=== PATIENT | female | born 1960 | race African-American/Black ===

== ENCOUNTER 2021-05-26 11:31 | Emergency (ER) | payer OTHER | END 2021-05-26 12:03 | disposition left against medical advice (07) | LOC: CSHERS 11:31 | DX: Z53.21 Procedure and treatment not carried out due to patient leaving prior to being seen by health care provider (principal) ==

== ENCOUNTER 2021-07-09 09:38 | Emergency (ER) | payer BC, OTHER ==
[2021-07-09 10:15] LABS: #Eosinphils 0.1 10x3/uL (0.0-0.5); #Monocytes 0.3 10x3/uL (0.0-1.1); #Neutrophils 1.6 10x3/uL (1.5-8.4); %Basophils 0.9 % (0.0-2.0); %Eosinophils 2.3 % (0.0-6.0); %Lymphocytes 41.3 % (18.0-47.0); %Monocytes 7.8 % (0.0-10.0); %Neutrophils 47.1 % (40.0-75.0); Hemoglobin 14.4 g/dL (12.0-15.5); Mean Corpuscular HGB CONC 33.1 g/dL (32.0-36.0); Mean Corpuscular Hemoglobin 27.7 pg (27.0-33.0); Mean Corpuscular Volume 83.7 fl (81.6-98.3); Mean Platelet Volume 10.5 fl (7.4-10.4); Platelet Count 218 10x3/uL (150-450); RBC Distribution Width 13.4 % (11.5-14.5); White Blood Cell (WBC) Count 3.4 10x3/uL (3.5-10.5)
[2021-07-09] MEDS ORDERED: Ondansetron PF 4 MG/2 ML Vial ONE (10:27)
[2021-07-09] MEDS ORDERED: Ketorolac Tromethamine 30 MG/ML VIAL ONE (10:27)
[2021-07-09 10:29] LABS: ALT (SGPT) 15 U/L (8-55); AST (SGOT) 15 U/L (5-34); Albumin 4.1 g/dL (3.4-4.8); Alkaline Phosphatase 149 U/L (40-110); Anion Gap 16 mmol/L (10-20); BUN (Urea Nitrogen) 13 mg/dL (9.8-20.1); Bilirubin, Total 0.3 mg/dL (0.2-1.2); CK (CPK) 82 U/L (29-168); Calc. Creatinine Clearance 0 mL/min (70-130); Calcium 9.4 mg/dL (7.8-10.44); Carbon Dioxide 21 mmol/L (23-31); Chloride 106 mmol/L (98-107); Glucose 180 mg/dL (80-115); Lipase 26 U/L (8-78); Potassium 4.7 mmol/L (3.5-5.1); Protein, Total 8.1 g/dL (5.8-8.1); Sodium 138 mmol/L (136-145)
[2021-07-09] MEDS ORDERED: Lidocaine 2 gm/D5W 500 ml 500 ML IVPB SCH (11:15)
[2021-07-09 11:44] LABS: Bilirubin Neg (Negative); Blood, Urine 250 (Negative); Clarity Clear (Clear); Glucose, Urine (Dipstick) 50 mg/dL (Negative); Ketone, Urine Negative (Negative); Leukocyte Negative (Negative); Nitrite Negative (Negative); Protein, Urine (Dipstick) Negative (Neg-Trace); Urobilinogen Normal mg/dL (Less than 2)
[2021-07-09 11:51] LABS: Bacteria/HPF Rare-Few HPF (None Seen); Squamous Epithelial 0-3 HPF (0-3); WBC/HPF 0-3 HPF (0-3)
[2021-07-09] MEDS ORDERED: D5W IVPB SCH (12:45)
[2021-07-09] MEDS ORDERED: LIDOCAINE IVPB SCH (12:45)
== END 2021-07-09 13:51 | disposition home or self-care (01) ==
LOC: CSHERS 09:38
DX: N13.2 Hydronephrosis with renal and ureteral calculous obstruction (principal); E11.9 Type 2 diabetes mellitus without complications
CPT/HCPCS: 71045; 74176; 80053; 81003; 81015; 82550; 83690; 84484; 85025; 93005; 96374; 96375; J1885; J2001; J2405

== ENCOUNTER 2021-11-22 17:19 | Emergency (ER) | payer BC ==
[2021-11-22] MEDS ORDERED: Diazepam 5 MG TAB ONE (19:35)
[2021-11-22] MEDS ORDERED: Ketorolac Tromethamine 30 MG/ML VIAL ONE (19:36)
== END 2021-11-22 19:53 | disposition home or self-care (01) ==
LOC: CSHERS 17:19
DX: M54.50 Low back pain, unspecified (principal); E11.9 Type 2 diabetes mellitus without complications
CPT/HCPCS: 96372; 99283; J1885

== ENCOUNTER 2021-11-24 09:16 | Emergency (ER) | payer BC | END 2021-11-24 11:00 | disposition home or self-care (01) | LOC: CSHERS 09:16 | DX: M54.42 Lumbago with sciatica, left side (principal) | CPT/HCPCS: 99283 ==

== ENCOUNTER 2021-12-17 09:24 | Emergency (ER) | payer BC ==
[2021-12-17 11:28] LABS: SARS-CoV-2 NAA Rapid Test DETECTED (NotDetected)
[2021-12-17] MEDS ORDERED: Ibuprofen 200 MG TAB ONE ×2 (12:26→12:34)
[2021-12-17] MEDS ORDERED: Acetaminophen 500 MG TAB ONE (12:27)
== END 2021-12-17 12:30 | disposition home or self-care (01) ==
LOC: CSHERS 09:24
DX: U07.1 COVID-19 (principal); E11.9 Type 2 diabetes mellitus without complications
CPT/HCPCS: 71045; 93005

== ENCOUNTER 2022-11-07 08:33 | Emergency (ER) | payer BC ==
[2022-11-07] MEDS ORDERED: Meclizine HCl 25 MG TAB ONE (09:17)
[2022-11-07 09:54] LABS: #Eosinphils 0.1 10x3/uL (0.0-0.5); #Monocytes 0.3 10x3/uL (0.0-1.1); #Neutrophils 1.4 10x3/uL (1.5-8.4); %Basophils 0.9 % (0.0-2.0); %Eosinophils 2.6 % (0.0-6.0); %Lymphocytes 46.8 % (18.0-47.0); %Monocytes 8.1 % (0.0-10.0); %Neutrophils 41.3 % (40.0-75.0); Hemoglobin 13.3 g/dL (12.0-15.5); Mean Corpuscular Hemoglobin 27.4 pg (27.0-33.0); Mean Corpuscular Volume 83.1 fl (81.6-98.3); Mean Platelet Volume 12.1 fl (7.4-10.4); Platelet Count 199 10x3/uL (150-450); RBC Distribution Width 13.3 % (11.5-14.5); Red Blood Cell (RBC) Count 4.85 10x6/uL (3.90-5.03); White Blood Cell (WBC) Count 3.5 10x3/uL (3.5-10.5)
[2022-11-07 10:16] LABS: ALT (SGPT) 14 U/L (8-55); AST (SGOT) 16 U/L (5-34); Albumin 3.8 g/dL (3.4-4.8); Alkaline Phosphatase 132 U/L (40-110); Anion Gap 14 mmol/L (10-20); BUN (Urea Nitrogen) 14 mg/dL (9.8-20.1); Bilirubin, Total 0.3 mg/dL (0.2-1.2); Calc. Creatinine Clearance 0 mL/min (70-130); Calcium 8.7 mg/dL (7.8-10.44); Carbon Dioxide 23 mmol/L (23-31); Chloride 107 mmol/L (98-107); Estimated GFR 97; Globulin 3.5 g/dL (2.4-3.5); Glucose 154 mg/dL (80-115); Potassium 4.1 mmol/L (3.5-5.1); Protein, Total 7.3 g/dL (5.8-8.1); Sodium 140 mmol/L (136-145)
== END 2022-11-07 10:36 | disposition home or self-care (01) ==
LOC: CSHERS 08:33
DX: R42 Dizziness and giddiness (principal); E11.9 Type 2 diabetes mellitus without complications
CPT/HCPCS: 36416; 80053; 85025; 93005; 94760

== ENCOUNTER 2023-04-23 13:39 | Emergency (ER) | payer BC ==
[2023-04-23 14:22] LABS: #Eosinphils 0.2 10x3/uL (0.0-0.5); #Monocytes 0.4 10x3/uL (0.0-1.1); #Neutrophils 2.3 10x3/uL (1.5-8.4); %Basophils 0.8 % (0.0-2.0); %Eosinophils 3.2 % (0.0-6.0); %Lymphocytes 42.9 % (18.0-47.0); %Monocytes 8.1 % (0.0-10.0); %Neutrophils 44.8 % (40.0-75.0); Hematocrit 42.3 % (34.9-44.5); Hemoglobin 13.9 g/dL (12.0-15.5); Mean Corpuscular HGB CONC 32.9 g/dL (32.0-36.0); Mean Corpuscular Hemoglobin 27.5 pg (27.0-33.0); Mean Corpuscular Volume 83.6 fl (81.6-98.3); Mean Platelet Volume 10.4 fl (7.4-10.4); Platelet Count 270 10x3/uL (150-450); RBC Distribution Width 13.2 % (11.5-14.5); Red Blood Cell (RBC) Count 5.06 10x6/uL (3.90-5.03)
[2023-04-23 14:35] LABS: ALT (SGPT) 14 U/L (8-55); AST (SGOT) 13 U/L (5-34); Albumin 4.2 g/dL (3.4-4.8); Alkaline Phosphatase 132 U/L (40-110); Anion Gap 15 mmol/L (10-20); BUN (Urea Nitrogen) 14 mg/dL (9.8-20.1); Bilirubin, Total 0.2 mg/dL (0.2-1.2); Calc. Creatinine Clearance 0 mL/min (70-130); Calcium 9.8 mg/dL (7.8-10.44); Carbon Dioxide 24 mmol/L (23-31); Chloride 106 mmol/L (98-107); Estimated GFR 64; Globulin 3.5 g/dL (2.4-3.5); Glucose 126 mg/dL (80-115); Potassium 4.1 mmol/L (3.5-5.1); Protein, Total 7.7 g/dL (5.8-8.1); Sodium 141 mmol/L (136-145)
[2023-04-23 14:41] LABS: Troponin I 0.011 ng/mL (< 0.028)
== END 2023-04-23 15:46 | disposition home or self-care (01) ==
LOC: CSHERS 13:39
DX: R00.2 Palpitations (principal); K30 Functional dyspepsia; E11.9 Type 2 diabetes mellitus without complications
CPT/HCPCS: 36416; 71045; 80053; 84484; 85025; 93005

== ENCOUNTER 2023-06-12 11:38 | Emergency (ER) | payer BC ==
[2023-06-12] MEDS ORDERED: Ketorolac Tromethamine 30 MG (1 mL) VIAL ONE (12:11)
== END 2023-06-12 12:41 ==
LOC: CSHERS 11:38
DX: M54.31 Sciatica, right side (principal); E11.9 Type 2 diabetes mellitus without complications
CPT/HCPCS: 99283; J1885

== ENCOUNTER 2023-11-20 09:25 | Emergency (ER) | payer BC ==
[2023-11-20] MEDS ORDERED: Meclizine HCl 25 MG TAB ONE (10:08)
[2023-11-20 10:42] LABS: #Basophils 0.03 10x3/uL (0.0-0.2); #Eosinphils 0.13 10x3/uL (0.0-0.5); #Monocytes 0.29 10x3/uL (0.0-1.1); #Neutrophils 1.46 10x3/uL (1.5-8.4); %Basophils 0.8 % (0.0-2.0); %Eosinophils 3.6 % (0.0-6.0); %Lymphocytes 47.8 % (18.0-47.0); %Monocytes 7.9 % (0.0-10.0); %Neutrophils 39.9 % (40.0-75.0); Hematocrit 39.5 % (34.9-44.5); Hemoglobin 13.6 g/dL (12.0-15.5); Mean Corpuscular HGB CONC 34.4 g/dL (32.0-36.0); Mean Corpuscular Hemoglobin 28.6 pg (27.0-33.0); Mean Corpuscular Volume 83.2 fL (81.6-98.3); Mean Platelet Volume 10.4 fL (7.4-10.4); Platelet Count 267 10x3/uL (150-450); RBC Distribution Width 13.7 % (11.5-14.5); Red Blood Cell (RBC) Count 4.75 10x6/uL (3.90-5.03); White Blood Cell (WBC) Count 3.7 10x3/uL (3.5-10.5)
[2023-11-20 10:56] LABS: ALT (SGPT) 14 U/L (8-55); AST (SGOT) 15 U/L (5-34); Albumin 3.8 g/dL (3.4-4.8); Alkaline Phosphatase 115 U/L (40-110); Anion Gap 13 mmol/L (10-20); BUN (Urea Nitrogen) 16 mg/dL (9.8-20.1); Bilirubin, Total 0.3 mg/dL (0.2-1.2); Calc. Creatinine Clearance 0 mL/min (70-130); Calcium 9.1 mg/dL (7.8-10.44); Carbon Dioxide 23 mmol/L (23-31); Chloride 107 mmol/L (98-107); Estimated GFR 91; Globulin 3.5 g/dL (2.4-3.5); Glucose 130 mg/dL (80-115); Protein, Total 7.3 g/dL (5.8-8.1); Sodium 139 mmol/L (136-145)
[2023-11-20 11:00] LABS: Troponin I Less than 0.010 ng/mL (< 0.028)
== END 2023-11-20 11:52 | disposition home or self-care (01) ==
LOC: CSHERS 09:25
DX: R42 Dizziness and giddiness (principal); E11.9 Type 2 diabetes mellitus without complications
CPT/HCPCS: 36416; 70450; 80053; 84484; 85025; 93005

== ENCOUNTER 2023-12-21 10:08 | Emergency (ER) | payer BC ==
[2023-12-21 11:18] LABS: Influenza A by NAA Not Detected (NotDetected); Influenza B by NAA Not Detected (NotDetected); SARS-CoV-2 NAA Rapid Test DETECTED (NotDetected)
== END 2023-12-21 11:45 | disposition home or self-care (01) ==
LOC: CSHERS 10:08
DX: U07.1 COVID-19 (principal); E11.9 Type 2 diabetes mellitus without complications
CPT/HCPCS: 71045; 87081; 87430

== ENCOUNTER 2025-05-08 03:02 | Emergency (ER) | payer BC ==
[2025-05-08] MEDS ORDERED: Ibuprofen 200 MG TAB ONE (03:25)
== END 2025-05-08 04:20 | disposition home or self-care (01) ==
LOC: CSHERS 03:02
DX: J01.00 Acute maxillary sinusitis, unspecified (principal); J00 Acute nasopharyngitis [common cold]; R59.0 Localized enlarged lymph nodes; I10 Essential (primary) hypertension; E11.9 Type 2 diabetes mellitus without complications; Z79.899 Other long term (current) drug therapy; Z79.84 Long term (current) use of oral hypoglycemic drugs
CPT/HCPCS: 87428; 99283

== ENCOUNTER 2025-05-08 17:41 | Emergency (ER) | payer BC ==
[2025-05-08] MEDS ORDERED: Ketorolac Tromethamine 30 MG (1 mL) VIAL ONE (19:05)
== END 2025-05-08 19:26 | disposition home or self-care (01) ==
LOC: CSHERS 17:41
DX: J32.9 Chronic sinusitis, unspecified (principal); E11.9 Type 2 diabetes mellitus without complications; I10 Essential (primary) hypertension; R29.700 NIHSS score 0
CPT/HCPCS: 96372; 99283; J1885